=== PATIENT | female | born 1970 | race Two or more races ===

== ENCOUNTER 2023-09-01 21:18 | Emergency (ER) | payer OTHER, SELFPAY ==
[2023-09-01 21:24] VITALS: BP 121/75; BMI 27.5
[2023-09-01 21:42] LABS: % Basophils 0.8 % (0-2); % Eosinophils 4.1 % (0-6); % Immature Granulocytes 0.3 % (0-0.5); % Lymphocytes 51.2 % (20.5-51.1); % Monocytes 9.7 % (1.7-9.3); % Neutrophils 33.9 % (42.2-75.2); Absolute Eosinophils 0.2 10^3/uL (0-0.7); Absolute Monocytes 0.4 10^3/uL (0.1-0.6); Absolute Neutrophils 1.3 10^3/uL (1.4-6.5); Hematocrit 36.7 % (37.0-47.0); Hemoglobin 11.9 g/dL (12.0-16.0); Mean Corp Hgb Conc. 32.4 g/dL (33.0-37.0); Mean Corpuscular Hgb 25.8 pg (27.0-31.0); Mean Corpuscular Volume 79.6 fL (81.0-99.0); Mean Platelet Volume 10.1 fL (7.4-10.4); Nucleated Red Blood Cells % 0 %; Platelet Count 308 10^3/uL (130-400); Red Blood Cell Count 4.61 10^6/uL (4.20-5.40); Red Cell Dist. Width 13.8 % (11.5-14.5); White Blood Cell Count 3.9 10^3/uL (4.8-10.8)
[2023-09-01 21:59] LABS: ALT (SGPT) 27 U/L (0-35); AST (SGOT) 29 U/L (14-36); Albumin 4.1 g/dl (3.5-5.0); Alkaline Phosphatase 76 U/L (38-126); Blood Urea Nitrogen 11 mg/dl (7-17); Calcium 9.2 mg/dl (8.4-10.2); Carbon Dioxide 31 mmol/L (22-30); Chloride 104 mmol/L (98-107); Estimated Creatinine Clearance 109 ml/min; Glucose 124 mg/dl (70-99); Lipase 88 U/L (23-300); Potassium 3.9 mmol/L (3.5-5.1); Sodium 137 mmol/L (135-145); Total Bilirubin 0.4 mg/dl (0.2-1.3); Total Protein 7.2 g/dl (6.3-8.2); eGFR > 60.00
[2023-09-01 23:36] VITALS: BP 121/64
[2023-09-01] MEDS: NSS 1000 IV (23:45)
[2023-09-02 01:21] LABS: Urine Albumin Negative (Neg - Trace); Urine Bilirubin Negative (Negative); Urine Character Clear (Clear); Urine Color Yellow; Urine Glucose Negative (Negative); Urine Ketone Trace (Negative); Urine Leukocyte Trace (Negative); Urine Nitrite Negative (Negative); Urine Occult Blood Negative (Negative); Urine Urobilinogen Negative (Neg - 1+)
[2023-09-02 01:36] VITALS: BP 123/69
[2023-09-02 01:43] LABS: Urine Squamous Cell >30 /LPF (Few)
[2023-09-02 01:44] LABS: Urine Bacteria Moderate (Negative); Urine Mucus Few; Urine Red Blood Cell 0-2 /HPF (0-2)
--- NOTE | 2023-09-02 02:25 | ED.GENMED ---
History of Present Illness
General
Chief Complaint: Abdominal Pain
Source: patient and family
Exam Limitations: none
Time Seen by Provider: 09/02/23 00:25
Travel History
Have you had any contact with someone who has COVID-19?: No
Do you have any symptoms of coronavirus? Fever > 100 degrees, chills, cough, shortness of breath, sore throat, loss of taste or smell, muscle aches, or headache?: No
History of Present Illness
History of Present Illness:
History taken via temperer on the language line. 52-year-old female presents with 1 month of left sided abdominal pain and left flank pain. Pain comes around the flank to the left abdomen. Patient states the pain has been there daily. Does
have occasional dysuria and urinary frequency. No vomiting or diarrhea. Does admit that she cannot have a normal bowel movement without taking a stool softener. Denies melena or hematochezia. No injury. No rash. Saw her primary doctor who
prescribed Naprosyn which she has been taking without improvement.
Past History
Past History
ED Past Surgical History: Negative Appendectomy, Bowel resection, Cardiac, Cholecystectomy or
Social History
Tobacco: Non-smoker
Alcohol: None
Drug: None
Personal:
Living: with family
Employment: Not employed
Family History
Family History: Other (Noncontributory)
Phy Exam
Physical Exam
Physical Exam:
CONSTITUTIONAL Patient alert and oriented to person, place and time. Well-appearing. Vital signs reviewed.
HEAD atraumatic, normocephalic.
EYES eyelids normal to inspection, Pupils equally round and reactive to light, Extraocular muscles intact, Conjunctiva normal, Sclera normal.
NECK normal range of motion, Trachea midline, no jugular venous distention.
RESPIRATORY CHEST No respiratory distress noted, Chest expansion equal, Bilateral breath sounds clear.
CARDIOVASCULAR regular rate and rhythm, Heart sounds normal.
ABDOMEN mild left abdominal tenderness, Bowel sounds normal. No distention.
BACK normal inspection, no obvious deformities, mild left lumbar paraspinal muscle tenderness, no CVA tenderness
UPPER EXTREMITY range of motion normal, Motor strength normal, no cyanosis, no edema.
LOWER EXTREMITY range of motion normal, Motor strength normal, no cyanosis, no edema.
NEURO Speech normal, No focal motor deficits, Beth coma scale 15, Memory normal, Cranial Nerves intact to screening exam.
SKIN skin warm, dry, and normal in color.
Course
Orders/Labs/Results
Orders:
Orders
09/01/23 21:29
Complete Blood Count/With Diff Urgent
Comprehensive Metabolic Panel Urgent
Lipase Urgent
09/01/23 23:45
0.9% Sodium Chloride 1000 ml [Nss] 1,000 ml IV BOLUS
09/02/23 01:03
CT Abd/Pel (IV only)-DH only Urgent
Comment:
Reason For Exam: L abd, flank pain
09/02/23 01:09
Urinalysis Reflex To Culture Urgent
Date Specimen was Collected: 09/02/23
Time Specimen was Collected: 01:01
Urine Microscopic Reflex Cult Urgent
Urine Culture Urgent
COLBY Source: U
Specimen Description:
Date Specimen was Collected: 09/02/23
Time Specimen was Collected: 01:01
Abnormal Lab Results
09/01/2324
21:29 01:09
WBC 3.9 L 10^3/uL
(4.8-10.8)
Hgb 11.9 L g/dL
(12.0-16.0)
Hct 36.7 L %
(37.0-47.0)
MCV 79.6 L fL
(81.0-99.0)
MCH 25.8 L pg
(27.0-31.0)
MCHC 32.4 L g/dL
(33.0-37.0)
Absolute Neuts (auto) 1.3 L 10^3/uL
(1.4-6.5)
Neutrophils % 33.9 L %
(42.2-75.2)
Lymphocytes % 51.2 H %
(20.5-51.1)
Monocytes % 9.7 H %
(1.7-9.3)
Carbon Dioxide 31 H mmol/L
(22-30)
Creatinine 0.5 L mg/dL
(0.6-1.0)
Glucose 124 H mg/dl
(70-99)
Urine Ketones Trace A
(Negative)
Leukocyte Esterase Rfl Trace A
(Negative)
Urine Bacteria (Reflex) Moderate A
(Negative)
09/01/23 21:29
09/01/23 21:29
Vital Signs
Initial and Last Documented VS:
Initial Vital Signs
Temp Pulse Resp BP Pulse Ox
97.6 F 67 18 121/75 100
09/01/23 21:24 09/01/23 21:24 09/01/23 21:24 09/01/23 21:24 09/01/23 21:24
Last Documented Vital Signs
Temp Pulse Resp BP Pulse Ox
97.6 F 67 16 123/69 100
09/02/23 01:36 09/02/23 01:36 09/02/23 01:36 09/02/23 01:36 09/02/23 01:36
MDM/Problems Addressed
MDM/Problems Addressed:
Abdominal pain, fecalization of the small bowel
*Radiology
Radiology exam reviewed: preliminary read by ED provider (No free air) and radiology read reviewed
*Pulse Oximetry
Patient hypoxic: no
*Critical Care Note
Total Time (30-74mins, 75-104mins- exclusive of procedures): Not Applicable
Data Reviewed
Review of Other/Old Records Reveals: Labs (Prior labs reviewed)
Source: patient and family
Prescriptions/Medications Considered But Not Given:
Consider antibiotics but no gross evidence of UTI
Patient Management
Escalation/DeEscalation of care consider admission/obs:
CT shows fecalization of the small bowel and otherwise unremarkable exam. Labs grossly unremarkable but symptoms x 1 month. Will recommend MiraLAX twice a day for the next 5 days. Advise close outpatient PCP and gastroenterology follow-up
ED Attending Note
-
Portions of this chart may have been created with voice recognition software.� Occasional wrong word or��sound alike� substitutions may have occurred due to the inherent limitations of voice recognition software.
Discharge Plan
Departure
Patient Disposition: Home (Routine Discharge)
Date of Disposition: 09/02/23
Time of Disposition: 02:28
Patient with high blood pressure during this ER visit?: No
Discharge Problem:
Abdominal pain, Constipation
Instructions: Constipation, Adult (DC), Abdominal Pain
Prescriptions:
No Action
naproxen 500 mg Tablet
500 mg PO BID PRN (Reason: pain )
Activity Restrictions/Additional Instructions:
Please use MiraLAX twice a day for the next 5 days. Please see gastroenterology or your doctor in follow-up in the next 1 week. Further workup may be necessary to include a colonoscopy or endoscopy. Return immediately for intractable vomiting,
fevers, worsening symptoms or any other concerns.
Interventions
Interventions:
*Risk Screen - Suicide Last Done: 09/01/23 21:24
*General Assessment Last Done: 09/01/23 23:48
*Neglect/Abuse Screening Last Done: 09/01/23 21:24
ED- Fall Risk Assessment Last Done: 09/01/23 23:48
*ED COVID-19 Vaccine History Last Done: 09/01/23 23:28
LZ-Nxtsmm-Hbrrjkmkvj Assessment Last Done: 09/01/23 23:48
== END 2023-09-02 03:10 | disposition home or self-care (01) ==
LOC: EMR 21:18
PROVIDERS: EMERGENCY PHYSICIAN Emergency Medicine; FAMILY PHYSICIAN Family Medicine
DX: R10.9 Unspecified abdominal pain (principal); K59.00 Constipation, unspecified; Z90.49 Acquired absence of other specified parts of digestive tract
CPT/HCPCS: 99284; 74177; 80053; 81003; 81015; 83690; 85025; 87086; Q9967